=== PATIENT | female | born 1990 | race Caucasian/White ===

== ENCOUNTER 2018-04-13 12:44 | Emergency (ER) | payer MEDICAID ==
--- NOTE | 2018-04-13 13:44 | EDM.PDOC ---
ED HPI GENERAL MEDICAL PROBLEM - General Chief Complaint: Gastrointestinal Problem Stated Complaint: WEAK,DIARRHEA Time Seen by Provider: 04/13/18 13:40 Source of Information: Reports: Patient, Family History Limitations: Reports: No Limitations - History of Present Illness INITIAL COMMENTS - FREE TEXT/NARRATIVE: Pt arrived with a history of diarrhea with having about 20 stools. This has not looked bloody. She is feeling weak and shakey. Onset: Other (during the nite the diarrhea started. ) Duration: Hour(s): Location: Reports: Abdomen Associated Symptoms: Reports: Other (pt had back pain yesterday. she then developed the diarrhea during the nite. ) Abdomen Pain Score (Numeric/FACES): 5 - Related Data Allergies Allergy/AdvReac Type Severity Reaction Status Date / Time No Known Allergies Allergy Verified 04/13/18 13:22 Home Meds: Home Meds NK [No Known Home Meds] 04/13/18 [History] Past Medical History HEENT History: Reports: Impaired Vision Respiratory History: Reports: Asthma Psychiatric History: Reports: Anxiety Social & Family History - Tobacco Use Smoking Status *Q: Heavy Tobacco Smoker Years of Tobacco use: 12 Packs/Tins Daily: 1 - Alcohol Use Days Per Week of Alcohol Use: 1 Number of Drinks Per Day: 8 Total Drinks Per Week: 8 - Recreational Drug Use Recreational Drug Use: No ED ROS GENERAL - Review of Systems Review Of Systems: See Below Constitutional: Reports: Weakness HEENT: Reports: No Symptoms Respiratory: Reports: No Symptoms Cardiovascular: Reports: No Symptoms Endocrine: Reports: No Symptoms GI/Abdominal: Reports: Abdominal Pain, Other ( back pain) : Reports: No Symptoms Musculoskeletal: Reports: No Symptoms Skin: Reports: No Symptoms ED EXAM, GI/ABD - Physical Exam Exam: See Below Text/Narrative:: pt had about 20 stools in the past 36 hours. We have been attempting to get a stool and she has not been able to go. Exam Limited By: No Limitations General Appearance: Alert, Anxious, Mild Distress Ears: Normal TMs Nose: Normal Inspection Throat/Mouth: Normal Inspection Head: Atraumatic Neck: Normal Inspection Respiratory/Chest: No Respiratory Distress Cardiovascular: Regular Rate, Rhythm GI/Abdominal Exam: Soft, Other (mild diffuse tenderness. No severe pain) (Female) Exam: Deferred Rectal (Female) Exam: Deferred Back Exam: Normal Inspection Extremities: Normal Inspection Neurological: Alert, Oriented, Normal Cognition Psychiatric: Normal Affect Course - Vital Signs Last Recorded V/S: Last Vital Signs Temp 36.5 C 04/13/18 13:21 Pulse 83 04/13/18 16:50 Resp 16 04/13/18 16:50 BP 135/69 04/13/18 16:50 Pulse Ox 100 04/13/18 16:50 - Orders/Labs/Meds Labs: Laboratory Tests 04/13/18 04/13/18 04/13/18 Range/Units 13:45 13:45 15:00 WBC 9.6 (4.5-11.0) K/uL RBC 4.85 (3.30-5.50) M/uL Hgb 14.8 (12.0-15.0) g/dL Hct 43.6 (36.0-48.0) % MCV 90 (80-98) fL MCH 31 (27-31) pg MCHC 34 (32-36) % Plt Count 395 (150-400) K/uL Neut % (Auto) 80 H (36-66) % Lymph % (Auto) 12 L (24-44) % Coffey % (Auto) 7 H (2-6) % Eos % (Auto) 1 L (2-4) % Baso % (Auto) 0 (0-1) % Sodium 139 L (140-148) mmol/L Potassium 3.6 (3.6-5.2) mmol/L Chloride 104 (100-108) mmol/L Carbon Dioxide 24 (21-32) mmol/L Anion Gap 14.6 H (5.0-14.0) mmol/L BUN 8 (7-18) mg/dL Creatinine 0.8 (0.6-1.0) mg/dL Est Cr Clr Drug Dosing 96.73 mL/min Estimated GFR (MDRD) > 60 (>60) Glucose 98 (74-106) mg/dL Calcium 8.3 L (8.5-10.1) mg/dL Total Bilirubin 0.5 (0.2-1.0) mg/dL AST 24 (15-37) U/L ALT 34 (12-78) U/L Alkaline Phosphatase 121 H (46-116) U/L Total Protein 7.9 (6.4-8.2) g/dL Albumin 3.5 (3.4-5.0) g/dL Globulin 4.4 H (2.3-3.5) g/dL Albumin/Globulin Ratio 0.8 L (1.2-2.2) Urine Color Yellow Urine Appearance Clear Urine pH 5.0 (4.5-8.0) Ur Specific [place] 1.010 (1.008-1.030) Urine Protein Negative (NEGATIVE) mg/dL Urine Glucose (UA) Normal (NEGATIVE) mg/dL Urine Ketones Negative (NEGATIVE) mg/dL Urine Occult Blood Negative (NEGATIVE) Urine Nitrite Negative (NEGATIVE) Urine Bilirubin Negative (NEGATIVE) Urine Urobilinogen Normal (NORMAL) mg/dL Ur Leukocyte Esterase Negative (NEGATIVE) Urine RBC 0-5 (0-5) Urine WBC 0-5 (0-5) Ur Epithelial Cells Few Amorphous Sediment Not seen Urine Bacteria Not seen Urine Mucus Not seen Meds: Medications Discontinued Medications Generic Name Dose Route Start Last Admin Trade Name Freq PRN Reason Stop Dose Admin Sodium Chloride 1,000 mls @ 999 mls/hr 04/13/18 13:45 04/13/18 13:45 Normal Saline IV 999 mls/hr ASDIRECTED ROSE Administration Sodium Chloride 1,000 mls @ 999 mls/hr 04/13/18 14:15 04/13/18 15:52 Normal Saline IV 999 mls/hr ASDIRECTED [facility] Administration - Re-Assessments/Exams Free Text/Narrative Re-Assessment/Exam: 04/13/18 15:50 Urine is clear. Her electrolytes would indicate dehydration. She was given 2 liters of fluid. An attempt was made to get a stool and she has not been able to go. Her wbc was normal. 04/17/18 07:19 Departure - Departure Time of Disposition: 17:15 Disposition: Home, Self-Care 01 Condition: Fair Clinical Impression: Dehydration, Diarrhea - Discharge Information Instructions: Diarrhea, Adult, Dehydration, Adult, [id number] Referrals: PCP,None [Primary Care Provider] - Forms: ED Department Discharge Care Plan Goals: push fluids, rtc with a stool for o and p, stool culture and clostrium diff, after a stool is obtained use imodium 2 tabs after each loose stool, stick with cleaR LIQUIDS FOR THE NEXT 24 HOURS.
[2018-04-13] MEDS ORDERED: Sodium Chloride 0.9% 1,000 ML IV SCH ×2 (13:45→14:15)
== END 2018-04-13 17:12 | disposition home or self-care (01) ==
LOC: JP.ED 12:44
DX: E86.0 Dehydration (principal); R19.7 Diarrhea, unspecified; J45.909 Unspecified asthma, uncomplicated; F17.210 Nicotine dependence, cigarettes, uncomplicated
CPT/HCPCS: 36415; 80053; 81001; 85025; 87046; 87177; 87209; 87493; 87899; 96360; 96361; 99284; J7030

== ENCOUNTER 2018-04-24 12:24 | Emergency (ER) | payer MEDICAID ==
[2018-04-24] MEDS ORDERED: LORazepam 1 MG Tab PO ONE (13:41)
--- NOTE | 2018-04-24 13:44 | EDM.PDOCBH ---
ED HPI GENERAL MEDICAL PROBLEM - General Chief Complaint: Behavioral/Psych Stated Complaint: PANIC ATTACK Time Seen by Provider: 04/24/18 13:38 Source of Information: Reports: Patient, Family, RN Notes Reviewed History Limitations: Reports: No Limitations - History of Present Illness INITIAL COMMENTS - FREE TEXT/NARRATIVE: 27-year-old female presents to the emergency department today with complaint of panic attack, she has a known history of anxiety disorder has used lorazepam in the past however has not had any of that medication. She states she's been feeling these symptoms for the last 4 days, recently moved here from [place], complains of tremulous feeling palpitations generalized anxiety and shortness of breath - Related Data Allergies Allergy/AdvReac Type Severity Reaction Status Date / Time No Known Allergies Allergy Verified 04/24/18 13:19 Home Meds: Home Meds NK [No Known Home Meds] 04/13/18 [History] Past Medical History HEENT History: Reports: Impaired Vision Respiratory History: Reports: Asthma Psychiatric History: Reports: Anxiety Social & Family History - Tobacco Use Smoking Status *Q: Heavy Tobacco Smoker Years of Tobacco use: 12 Packs/Tins Daily: 1 - Alcohol Use Days Per Week of Alcohol Use: 1 Number of Drinks Per Day: 8 Total Drinks Per Week: 8 - Recreational Drug Use Recreational Drug Use: No ED ROS GENERAL - Review of Systems Review Of Systems: See Below Constitutional: Reports: No Symptoms HEENT: Reports: No Symptoms Respiratory: Reports: Shortness of Breath Cardiovascular: Reports: Palpitations GI/Abdominal: Reports: No Symptoms : Reports: No Symptoms Musculoskeletal: Reports: No Symptoms Skin: Reports: No Symptoms Neurological: Reports: Tremors Psychiatric: Reports: Anxiety ED EXAM, BEHAVIORAL HEALTH - Physical Exam Exam: See Below Exam Limited By: No Limitations General Appearance: Alert, WD/WN, No Apparent Distress Respiratory/Chest: No Respiratory Distress, Lungs Clear, Normal Breath Sounds, No Accessory Muscle Use Cardiovascular: Regular Rate, Rhythm, No Murmur Psychiatric: Alert, Agitated COURSE, BEHAVIORAL HEALTH COMP - Course Vital Signs: Last Vital Signs Temp 96.4 F 04/24/18 13:19 Pulse 121 H 04/24/18 13:19 Resp 18 04/24/18 13:19 BP 157/99 H 04/24/18 13:19 Pulse Ox 95 04/24/18 13:19 Orders, Labs, Meds: Medications Discontinued Medications Generic Name Dose Route Start Last Admin Trade Name Mary PRN Reason Stop Dose Admin Lorazepam 1 mg 04/24/18 13:41 04/24/18 13:52 Ativan PO 04/24/18 13:42 1 mg ONETIME ONE Administration Departure - Departure Time of Disposition: 14:27 Disposition: Home, Self-Care 01 Condition: Good Clinical Impression: Panic attack - Discharge Information Referrals: PCP,None [Primary Care Provider] - Forms: ED Department Discharge Additional Instructions: Use Ativan as needed to help control symptomology of panic attack, please establish with primary care provider for further evaluation and treatment, call or return to the emergency department worsening of symptoms - Assessment/Plan Plan: Assessment Acuity = acute Site and laterality = panic attack Etiology = underlying generalized anxiety disorder Manifestations = none Location of injury = Home Lab values = none Plan She had good relief with the Ativan provided, prescription written for Ativan 1 mg 1 tablet by mouth every 4-6 hours when necessary total #10, will need to establish primary care provider for treatment of underlying anxiety disorder This note was dictated using [employer] voice recognition software please call with any questions on syntax or grammar.
== END 2018-04-24 14:41 | disposition home or self-care (01) ==
LOC: JP.ED 12:24
DX: F41.0 Panic disorder [episodic paroxysmal anxiety] (principal); F17.210 Nicotine dependence, cigarettes, uncomplicated
CPT/HCPCS: 99283; A9270-GY